=== PATIENT | female | born 1940 | race Caucasian/White ===

== ENCOUNTER → 2017-02-10 | Day surgery (SDC) | payer OTHER ==
[~2017-02-10] MED LIST: ASPIRIN81 M2 PO; ASPIRIN81 MG PO; ATORVASTATIN CA10 MG PO; BAYER CHEWABLE81 MG PO; BENADRYL25 MG PO; BENTYL10 M1 PO; CELEXA PO; CLOPIDOGREL BIS75 MG PO; CLOPIDOGREL75 MG PO; COMBIVENT MININEB; DOCUSATE SODIU100 MG PO; FLAGYL250 M1 PO; FLORINEF ACETA0.1 MG PO; GABAPENTIN800 MG PO; HYDROCODON-ACE1 EAC5 PO; HYDROCODON-ACE1 EAC9 PO; HYDROCODONE-APA1 T58 PO; KEPPRA500 M2 PO; LAMICTAL25 MG PO; LAMOTRIGINE; LEVAQUIN250 MG PO; LEVAQUIN750 M1 PO; LEVSIN-SL0.125 MG SL; LIPITOR PO; LIPITOR20 MG PO; LIPITOR80 MG PO; LISINOPRIL2.5 MG PO; LISINOPRIL20 MG PO; MEGACE PO; METHADOSE5 MG PO; METOPROLOL TAR25 MG PO; METOPROLOL TART25 MG PO; MILK OF MAGNESIA PO; MORPHINE SULFAT15 MG PO; MS CONTIN PO; NEURONTIN800 MG PO; NICOTINE TRANSD14 MG EXT; NITROGLYGERIN0.4 MG SL; NITROGYLCERIN SUBLINGUAL; NITROSTAT0.4 MG SL; NORCO1 TAB 10/3; NYSTATIN15 GM OINT EXT; PANTOPRAZOLE SO40 MG PO; PAROXETINE HCL10 MG PO; PAXIL10 MG PO; PERCOCET5/325 PO; PERCOCET7.5 PO; PLAVIX PO; PREDNISONE10 MG/DOSE PO; PREMARIN0.9 MG PO; PRO-AMATINE5 M1 PO; PROBIOTIC1 EAC1 PO; SENNA8.6 M2 PO; SIMETHICONE125 MG PO; SYMBICORT80 INH; TOPROL XL PO; TRAMADOL HCL50 M1 PO; ZOCOR20 MG PO; ZOFRAN ODT4 MG/UDTAB PO
--- NOTE | ~2017-02-10 | OR ---
Unit #: [id number] #: [id number] Patient: MUNIR WAYNE [id number] [address] [address] [id number] O MR#: [id number] NAME: MUNIR WAYNE ROOM: Date of Procedure: 02/10/2017 Admission Date: 02/10/2017 Surgeon: Josh Avilez M.D. : 1940 Attending Physician: Josh Avilez M.D. Primary Care Physician: Kiah Chaney M.D. OPERATIVE REPORT PROCEDURE PERFORMED Esophagogastroduodenoscopy with biopsy. INDICATIONS FOR PROCEDURE The patient with significant epigastric pain, nausea, vomiting. MEDICATIONS Monitored anesthesia. POSTOPERATIVE FINDINGS 1. Small hiatal hernia. 2. Mild gastroduodenitis. Biopsies were taken in the antrum and body. 3. Rest of the exam was normal. PLAN Follow up on pathology report. PPI therapy for now. DESCRIPTION OF PROCEDURE The patient was explained of the procedure, risks, and benefits along with risks and benefits of anesthesia. She was brought to the endoscopy room. Propofol anesthesia was given. Bite block was placed. The scope was passed down the mouth and esophagus, stomach, duodenum, and distal duodenum. Findings as described. Biopsies were taken. Gently, I pulled the scope out of the patient's mouth. She tolerated it well. No major complications were seen. Dictated by... Marilin Haley/dimitrios TD: 03/01/2017 15:05 JOB #: [id number] Unit #: [id number] #: [id number] Patient: MUNIR WAYNE OPERATIVE REPORT Page 1 of 1 X Josh Avilez MD X PROCEDURE OPERATIVE NOTE
== END | disposition home or self-care (01) ==
LOC: COPS 09:25
DX: K29.90 Gastroduodenitis, unspecified, without bleeding (principal); K44.9 Diaphragmatic hernia without obstruction or gangrene; I25.119 Atherosclerotic heart disease of native coronary artery with unspecified angina pectoris; Z88.0 Allergy status to penicillin; Z85.528 Personal history of other malignant neoplasm of kidney; Z90.5 Acquired absence of kidney
CPT/HCPCS: 88305; 88312

== ENCOUNTER 2017-02-14 13:39 | Emergency (ER) | payer OTHER ==
[2017-02-14 14:33] LABS: BASOPHIL# 0.1 X10e3 (0-0.3); BASOPHIL% 0.5 % (0-2.5); EOSINOPHIL# 0.2 X10e3 (0-0.7); EOSINOPHIL% 2.2 % (0.0-7.0); HEMATOCRIT 46.4 % (35.0-45.0); HEMOGLOBIN 15.1 gm/dL (12.0-16.0); LYMPHOCYTE# 2.2 X10e3 (1.0-3.5); LYMPHOCYTE% 21.4 % (17.0-45.0); MEAN CELL VOLUME 93.8 FL (83-96); MEAN CORPUSCULAR HEMOGLOBIN 30.6 PG (28-34); MEAN CORPUSCULAR HGB CONC 32.6 g/dL (30-36); MEAN PLATELET VOLUME 9.7 FL (6.5-11.5); NEUTROPHIL# 6.8 X10e3 (1.5-7.1); NEUTROPHIL% 65.9 % (40-75); PLATELET COUNT 246 X10e3 (140-420); RED BLOOD COUNT 4.94 X10e (3.90-5.30); RED CELL DISTRIBUTION WIDTH 15.2 % (11.0-15.5); WHITE BLOOD COUNT 10.2 X10e3 (4.0-10.5)
[2017-02-14 14:37] LABS: DIFF IND NO; URINE SOURCE CLEAN CATCH
[2017-02-14 14:49] LABS: URINE APPEARANCE CLEAR; URINE BILIRUBIN NEG (NEG); URINE BLOOD NEG (NEG); URINE COLOR YELLOW; URINE GLUCOSE NEG (NEG); URINE KETONE NEG (NEG); URINE LEUKOCYTE ESTERASE NEG (NEG); URINE NITRATE NEG (NEG); URINE PH 5.5 (5-8); URINE PROTEIN NEG (NEG); URINE UROBILINOGEN 0.2 MG/DL (NEG)
[2017-02-14 14:58] LABS: ALBUMIN SERUM 3.9 g/dL (3.5-5.0); BILIRUBIN, DIRECT 0.2 mg/dL (0.0-0.2); BILIRUBIN,INDIRECT 1.1 mg/dL (0.0-0.9); BILIRUBIN,TOTAL 1.3 mg/dL (0.2-2.0); BUN/CREATININE RATIO 13.33; CALCIUM SERUM 9.5 mg/dL (8.4-10.2); CREATININE SERUM 1.2 mg/dL (0.6-1.4); GLOM FILT RATE Estimated 43.3 mL/min (>60); POTASSIUM 4.8 mmol/L (3.5-5.1); PROTEIN TOTAL SERUM 7.1 g/dL (6.0-8.3)
[2017-02-14 15:00] LABS: CULTURE INDICATED? NO
== END 2017-02-14 17:18 | disposition home or self-care (01) ==
LOC: CED 13:39
DX: R10.9 Unspecified abdominal pain (principal); R11.2 Nausea with vomiting, unspecified; I50.9 Heart failure, unspecified; F17.200 Nicotine dependence, unspecified, uncomplicated; Z90.49 Acquired absence of other specified parts of digestive tract; Z90.710 Acquired absence of both cervix and uterus; Z95.818 Presence of other cardiac implants and grafts; Z88.0 Allergy status to penicillin
CPT/HCPCS: 36415; 51701; 80048; 80076; 81003; 83690; 85025; 96361; 96374; 96375; 99284; C9113; J2405

== ENCOUNTER → 2017-02-18 | Outpatient (CLI) | payer OTHER ==
[2017-02-18 14:22] LABS: HEMATOCRIT 43.7 % (35.0-45.0); HEMOGLOBIN 14.4 gm/dL (12.0-16.0); MEAN CELL VOLUME 92.7 FL (83-96); MEAN CORPUSCULAR HEMOGLOBIN 30.4 PG (28-34); MEAN CORPUSCULAR HGB CONC 32.8 g/dL (30-36); MEAN PLATELET VOLUME 9.3 FL (6.5-11.5); RED BLOOD COUNT 4.72 X10e (3.90-5.30); RED CELL DISTRIBUTION WIDTH 14.9 % (11.0-15.5)
[2017-02-18 14:49] LABS: ALBUMIN SERUM 3.6 g/dL (3.5-5.0); BILIRUBIN,TOTAL 0.9 mg/dL (0.2-2.0); BUN/CREATININE RATIO 14.54; CALCIUM SERUM 8.7 mg/dL (8.4-10.2); CREATININE SERUM 1.1 mg/dL (0.6-1.4); GLOM FILT RATE Estimated 48.1 mL/min (>60); POTASSIUM 3.6 mmol/L (3.5-5.1); PROTEIN TOTAL SERUM 6.4 g/dL (6.0-8.3)
== END | disposition home or self-care (01) ==
LOC: CLAB 13:49
PROVIDERS: Internal Medicine
DX: R10.9 Unspecified abdominal pain (principal)
CPT/HCPCS: 36415; 80053; 85027

== ENCOUNTER → 2017-02-24 | Outpatient (CLI) | payer OTHER ==
--- NOTE | ~2017-02-24 | CT2 ---
[facility] A Service of [facility] & [facility] RADIOLOGY TEXT RESULTS PATIENT: MUNIR WAYNE LOCATION: [facility] : 36 UNIT #: [id number] AGE: [address]: Josh Avilez MD SEX: F ORDER DR: [id number] [facility] [address] [place], [place] [address] [id number] O MR#: [id number] Acc #: [id number] NAME: MUNIR WAYNE. : 1940 SEX: F STUDY DATE/TIME: 02/24/2017 10:45 UNIT: [facility] ROOM: STUDY DESCRIPTION: CT Abd and Pelv W Cont Attending Physician: Josh Avilez M.D. Referring Physician: Josh Avilez M.D. Ordering Physician: Josh Avilez M.D. Primary Care Physician: Kiah Chaney M.D. MEDICAL IMAGING REPORT This report is preliminary unless electronic signature is present EXAM CT of abdomen and pelvis with contrast. INDICATIONS Constant abdominal pain for 4 months, as well as nausea and vomiting. This is located within the pelvic area. TECHNIQUE Axial CT images were obtained from the dome of the diaphragm through the symphysis pubis following administration of oral and intravenous contrast material. This CT exam was performed with one or more of the following radiation dose reduction techniques: automatic exposure control, adjustment of mA and/or kV according to patient size, and iterative reconstruction. FINDINGS Images through the lung bases demonstrate background emphysematous changes. The stomach is within normal limits. Patient does have a diverticulum arising from the second portion of the duodenum. Old calcified granulomata are seen within the spleen. Pancreas is mildly atrophic. Patient has a left adrenal nodule which has been seen on prior examinations dating back to February of 2014. 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 There is a stone identified within the left renal pelvis measuring about 8 mm in size without any evidence of obstruction. Gallbladder is surgically absent, and there is some dilatation of the common bile duct measuring up to 1.2 cm. Similar findings were present in July of 2016, and I think the patient probably has a few foci of pneumobilia. 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 Uterus is surgically absent. There is colonic diverticulosis, although, I do not see any evidence of diverticulitis. There is no evidence of mechanical STS. [facility] A Service of [facility] RADIOLOGY TEXT RESULTS PATIENT: MUNIR WAYNE LOCATION: [facility] : 36 UNIT #: [id number] AGE: [address]: Josh Avilez MD SEX: F ORDER DR: bowel obstruction. Urinary bladder appears normal. I think the appendix may be of surgically absent as well. Review of bony windows does not demonstrate any aggressive osseous abnormalities. There is some anterolisthesis of L4 on L5. The patient does have aneurysmal dilatation of the infrarenal abdominal aorta measuring up to about 3.5 cm. This is unchanged when compared to the August 17, 2016, examination. Although it is larger than in February of 2014 when it measured about 3.1 cm. There is also calcified dissection seen within the infrarenal abdominal aorta. Dense atherosclerotic plaque continues into the iliac vessels. IMPRESSION 1. No obvious etiology for the patient's pelvic pain is seen. 2. Patient does have aneurysmal dilatation of the infrarenal abdominal aorta measuring up to 3.5 cm. This was also present in July of 2016, and is unchanged; although, I do think it is slightly increased when compared to February of 2014. 3. Changes of prior right nephrectomy, as well as hysterectomy and retroperitoneal lymph node dissection. This patient is also status post cholecystectomy and probably status post appendectomy as well. 4. Colonic diverticulosis without any convincing evidence of diverticulitis on the current study. 5. Dilatation of the common bile duct seen on prior examinations. Patient does have a small amount of pneumobilia. 6. 8 mm nonobstructing stone identified within the left kidney. 7. Please see the body of the report for any other additional incidental findings. Dictated by... Helga Ortega M.D. THIS IS AN ELECTRONICALLY VERIFIED REPORT Helga Ortega M.D. at 02/26/2017 10:51 AM AFF/jrobbin TD: 02/25/2017 21:32 JOB #: [id number] MEDICAL IMAGING REPORT Page 1 of 1 COPY
[2017-02-24 11:51] LABS: POC - CREATININE 1.05 mg/dL (0.44-1.03)
== END | disposition home or self-care (01) ==
LOC: CCAT 08:57
PROVIDERS: Internal Medicine
DX: R10.2 Pelvic and perineal pain (principal); I71.4 Abdominal aortic aneurysm, without rupture; K57.30 Diverticulosis of large intestine without perforation or abscess without bleeding; N20.2 Calculus of kidney with calculus of ureter
CPT/HCPCS: 74177; 82565; Q9967